=== PATIENT | male | born 1985 | race Asian ===

== ENCOUNTER → 2017-01-07 | Day surgery (SDC) | payer BC ==
[~2017-01-07] VITALS: Ht 160 cm; Wt 68.0 kg
[2017-01-07] VITALS (9 sets, daily range): BP systolic 100–125; BP diastolic 66–81
[~2017-01-07] MED LIST: ADVAIR 100-501 EACH INH; Albuterol 90mcg Inhaler 8gm INH ONE; Albuterol ud Inhalation HHN ONE; HUMIRA40 MG/0.2 SUBQ; LOSARTAN POTASS25 MG ORAL; LR 1000ml 1,000 ML IVLG SCH; LR 1000ml ONE; Lidocaine 1% MPF 10mg/ml 5ml ONE; Propofol 10mg/ml 20ml IV ONE; VENTOLIN HFA18 GM INH; ePHEDrine 50mg/ml Inj ONE
--- NOTE | 2017-01-07 07:10 | Pre-Procedure Note/Attestation ---
Pre-Procedure Note/Attestation Complete Prior to Procedure Planned Procedure: not applicable Procedure Narrative: EGD/Colon Indications for Procedure Pre-Operative Diagnosis: Crohn's dz Attestation I attest that I discussed the nature of the procedure; its benefits; risks and complications; and alternatives (and the risks and benefits of such alternatives ), prior to the procedure, with the patient (or the patient's legal chain sales representative). I attest that, if there was a reasonable possibility of needing a blood transfusion, the patient (or the patient's legal chain sales representative) was given the [facility] standardized written summary, pursuant to the Devin Marlene Blood Safety Act ([place] Health and Safety Code # 1645, as amended). I attest that I re-evaluated the patient just prior to the surgery and that there has been no change in the patient's H&P, except as documented below: SILVIO FIGUEROA Jan 07, 2017 07:10
--- NOTE | 2017-01-07 07:11 | Short Stay Surgery H&P ---
History of Present Illness History of Present Illness Chief Complaint see attached H&P HPI Chavez Chan is a 31 year old male who was admitted on for Crohn's Disease Patient History Allergies: Coded Allergies: No Known Allergies (Unverified , 01/06/17) PAST MEDICAL HISTORY: Past Surgeries: Social History: Medication History Scheduled Adalimumab (Humira), 40 MG SUBQ Q14D, (Reported) Losartan Potassium* (Losartan Potassium*), 25 MG ORAL DAILY, (Reported) Scheduled PRN Albuterol Sulfate (Ventolin Hfa), 2 PUFFS INH EVERY 6 HOURS PRN for Shortness of breath, (Reported) Fluticasone/Salmeterol (Advair 100-50 Diskus), 1 PUFF INH EVERY 12 HOURS PRN for Shortness of Breath, (Reported) Physical Exam Vital Signs Last Vital Signs Date Time Temp Pulse Resp B/P Pulse Ox O2 Delivery O2 Flow Rate FiO2 01/07/17 06:55 97.8 72 18 100/74 97 Room Air Plan Attestation Are the patient's medical conditions optimized for surgery? SILVIO FIGUEROA Jan 07, 2017 07:11
--- NOTE | 2017-01-07 08:37 | Immediate Post-Op Evaluation ---
Immediate Post-Op Evalulation Immediate Post-Op Evalulation Procedure: EGD/Colonoscopy Date of Evaluation: Jan 07, 2017 Time of Evaluation: 08:35 IV Fluids: 1000 Blood Pressure Systolic: 125 Blood Pressure Diastolic: 70 Pulse Rate: 66 Respiratory Rate: 14 O2 Sat by Pulse Oximetry: 100 Temperature (Fahrenheit): 97.1 Nausea: No Vomiting: No Complications none Patient Status: reacts, patent Drug: none IKERILUDWIGIONCONY CRNA Jan 07, 2017 08:37
--- NOTE | 2017-01-07 08:59 | Endoscopy Procedure Note ---
Endoscopy Procedure Note Indication for Procedure: Crohns Procedures Performed: EGD, colonoscopy Operative Findings/Diagnosis: umbilicated antrum lesion- bx, nl TI, loss of colon vsc, 2 apth ulcers Specimen: yes Pt Tolerated Procedure Well: Yes Estimated Blood Loss: minimal Anesthesiologist: see report Anesthesia: MAC Medication Given: see anesthesia record Implant(s) used?: No 50 yrs or older w/o bx or poly: Not Applicable 10yrs. F/U not recommended: Not Applicable If not recommended, why?: SILVIO FIGUEROA Jan 07, 2017 08:59
--- NOTE | 2017-01-07 09:02 | Brief Operative Note ---
Immediate Post Operative Note Operative Note Chief Complaint: Crohns Pre-op Diagnosis: Crohn's dz Procedure: EGD/colon Post-op Diagnosis: EGD: umbilicated nodule , antrum - bx, antrum Bx Colon: Normal TI, granular mucosa, 2 apthous ulcers, some folds, random biopsies Surgeon: marilin Anesthesiologist: present Anesthesia: MAC, moderate sedation Specimen: yes Complications: none Condition: stable Estimated Blood Loss: none Drains: none Implant(s) used?: No SILVIO FIGUEROA Jan 07, 2017 09:02
--- NOTE | 2017-01-07 09:48 | 48 Hour Post Anesthesia Eval ---
Post Anesthesia Evaluation Procedure: EGD/Colonoscopy Date of Evaluation: Jan 07, 2017 Time of Evaluation: 09:47 Blood Pressure Systolic: 116 0: 72 Pulse Rate: 70 Respiratory Rate: 14 O2 Sat by Pulse Oximetry: 98 Airway: patent Nausea: No Vomiting: No Hydration Status: adequate Mental Status/LOC: patient returned to baseline Post-Anesthesia Complications: none Follow-up care needed: N/A CONY REYES CRNA Jan 07, 2017 09:48
--- NOTE | 2017-01-07 09:55 | Anethesia Preoperative Eval ---
Anesthesia Pre-op PMH/ROS General Date of Evaluation: Jan 07, 2017 Time of Evaluation: 07:10 Anesthesiologist: flory ASA Score: ASA 2 Mallampati Score Class I : Soft palate, uvula, fauces, pillars visible Class II: Soft palate, uvula, fauces visible Class III: Soft palate, base of uvula visible Class IV: Only hard plate visible Mallampati Classification: Class II Surgeon: eugene Diagnosis: chrons disease Surgical Procedure: EGD/Colonoscopy Anesthesia History: none Social History: smoking, current smoker Family History: no anesthesia problems Allergies: Coded Allergies: No Known Allergies (Unverified , 01/06/17) Medications: see eMAR Past Medical History Cardiovascular: Reports: HTN Pulmonary: Reports: asthma Gastrointestinal/Genitourinary: Denies: CRI, ESRD, GERD, other Neurologic/Psychiatric: Denies: CVA, TIA, dementia, depression/anxiety, other Endocrine: Denies: DM, hypothyroidism, other, steroids HEENT: Denies: [place] (L), [place] (R), cataract (L), cataract (R), glaucoma, other Musculoskeletal/Integumentary: Denies: DDD, DJD, OA, RA, edema, other PMH Narrative: chrons Anesthesia Pre-op Phys. Exam Physician Exam Last Vital Signs Date Time Temp Pulse Resp B/P Pulse Ox O2 Delivery O2 Flow Rate FiO2 01/07/17 09:05 98.0 64 20 116/72 96 Room Air Constitutional: NAD Neurologic: CN 2-12 intact Cardiovascular: RRR Respiratory: CTA Gastrointestinal: S/NT/ND Airway Exam Mallampati Classification 2 Mallampati Score: Class II MO: full ROM: full Dentures: no lower, no upper Anesthesia Pre-op A/P Studies Pre-op Studies: EKG - SR Risk Assessment & Plan Plan: mac Status Change Before Surgery: No Pre-Antibiotics Drug: none CONY REYES CRNA Jan 07, 2017 09:55
--- NOTE | 2017-01-07 22:28 | Operative Note - Dictated ---
DATE OF OPERATION: 01/07/2017 GASTROLOGY PROCEDURE NOTE PROCEDURE: Upper gastrointestinal endoscopy with biopsy as well as colonoscopy with biopsy. SURGEON: Bonita Howe M.D. ANESTHESIA: Please see the separate anesthesiologist notes for details. PRE-ENDOSCOPIC DIAGNOSES: Crohn disease. POST-ENDOSCOPIC DIAGNOSES: 1. Umbilicated diverticulum-like lesion in the antrum, which was seen in the previous endoscopy, status post biopsies of the edges. 2. Status post random biopsies of the antrum. 3. Normal terminal ileum with no evidence of inflammation or ulceration. 4. Ulcerated, elongated polypoid lesions seen at the ileocecal valve x2. Most of them were removed with a snare polypectomy device. 5. Granularity and loss of mucosal vascular details throughout the colon. 6. Two aphthous ulcers seen in the colon along the transverse and along the descending colon, status post biopsy. 7. Status post four quadrant biopsies at 10 cm intervals throughout the colon. 8. There are two polyps versus thickened folds were seen and there were biopsied as well as a polyp in the rectum was removed by biopsy. DESCRIPTION OF PROCEDURE: The procedure, its risks, indications, alternatives, and possible complications including, but not limited to, bleeding, infection, perforation, , and anesthesia complications were explained to the patient and informed consent was obtained. The patient was then sedated and a diagnostic upper endoscope was introduced into the oropharynx and advanced to the duodenum. The endoscope was gradually withdrawn and the mucosa examined carefully. Examination of the upper gastric mucosa revealed 3 mm to 4 mm umbilicated lesion versus a diverticulum seen in the antrum near the pylorus. This was seen previously on the last endoscopy. Biopsies of the lesion was sent to pathology for review. The biopsies of the adjacent antrum mucosa were also sent to pathology for review. There were no ulcerations or erythema or other signs of inflammation in the upper gastrointestinal tract, including the small intestine. The endoscope was removed. The rectal exam was done. The colonoscope was introduced into the rectum and advanced to the terminal ileum. The colonoscope was then advanced 10 cm to 15 cm into small bowel. Examination of the terminal ileal mucosa did not reveal any inflammation or ulcerations. At the ileocecal valve, however, there were two polypoid lesions, measuring approximately 7 to 8 mm in length each. They were narrow and worm-like projections. Both were somewhat ulcerated on the tip and both were removed with snare polypectomy without complications. The colonic mucosa itself showed loss of mucosal fine vascular detail and appeared somewhat granular throughout the colon. Random biopsies in the 4 quadrants were obtained at 10 cm intervals throughout the colon. In addition, there were two aphthous ulcers seen, one in the transverse colon and one in the descending colon. There was a diminutive polyp versus possibly a raised aphthous ulcer in the rectum, which was also biopsied and biopsy was sent to pathology for review. The finding, there were a few thickened folds seen versus polyps. These were biopsied and biopsies were sent to pathology for review. The colonoscope was removed. The patient was sent to recovery in good condition. COMPLICATIONS: None. RECOMMENDATIONS: 1. Follow up biopsy results. 2. Check adalimumab as well as adalimumab antibody titers. 3. MR enterography to complete the workup in about 10 days. 4. Discussed with the patient as an outpatient regarding change in the medications for Crohn's disease. Bonita Howe M.D. DR: Beata JOB#: [id number] CC:
== END | disposition home or self-care (01) ==
LOC: GAS 06:09
DX: K50.90 Crohn's disease, unspecified, without complications (principal); D12.0 Benign neoplasm of cecum; K63.5 Polyp of colon; K62.1 Rectal polyp; K63.3 Ulcer of intestine; K52.89 Other specified noninfective gastroenteritis and colitis; K31.9 Disease of stomach and duodenum, unspecified; K29.50 Unspecified chronic gastritis without bleeding; I10 Essential (primary) hypertension; J45.909 Unspecified asthma, uncomplicated; F17.200 Nicotine dependence, unspecified, uncomplicated
CPT/HCPCS: 43239; 45380; 45385; J2704; J7120; 94003; 94150